=== PATIENT | male | born 1965 | race Caucasian/White ===

== ENCOUNTER 2018-08-10 14:51 | Day surgery (SDC) | payer OTHER ==
[~2018-08-10 14:51] MED LIST: SEVOFLURANE 15 MIN
[2018-08-10] MEDS ORDERED: LIDOCAINE 100 MG SYRINGE (17:01)
[2018-08-10] MEDS ORDERED: FENTAnyl 50 MCG/ML VIAL ×2 (17:01→17:40)
[2018-08-10] MEDS ORDERED: ROCURONIUM 50 MG INJ (17:01)
[2018-08-10] MEDS ORDERED: CEFAZOLIN 1 GM INJ (17:01)
[2018-08-10] MEDS ORDERED: SUCCINYLCHOLINE CHLORIDE 100 MG/5 ML SYG IV (17:01)
[2018-08-10] MEDS ORDERED: PROPOFOL 100 ML (17:01)
[2018-08-10] MEDS ORDERED: MIDAZOLAM 1 MG/ML 2 ML INJ (17:01)
[2018-08-10] MEDS ORDERED: ONDANSETRON 4 MG INJ (17:18)
[2018-08-10] MEDS ORDERED: DEXAMETHASONE 4 MG/ML 5 ML INJ (17:18)
[2018-08-10] MEDS ORDERED: LABETALOL HCL 20MG INJ IV (17:30)
[2018-08-10] MEDS ORDERED: METOCLOPRAMIDE 10 MG INJ IV (17:30)
[2018-08-10] MEDS ORDERED: ONDANSETRON 4 MG INJ IV (17:30)
[2018-08-10] MEDS ORDERED: hydrALAzine 20 MG INJ IV (17:30)
[2018-08-10] MEDS ORDERED: HYDROmorphONE 1 MG/5 ML IV SYRINGE IV ×2 (17:30)
[2018-08-10] MEDS ORDERED: MEPERIDINE 25 MG INJ IV (17:30)
[2018-08-10] MEDS ORDERED: FENTAnyl 50 MCG/ML VIAL IV (17:30)
[2018-08-10] MEDS: BUPIVACAINE 0.5% (SDV) 30 ML INJ (17:44)
[2018-08-10] MEDS ORDERED: SUGAMMADEX SODIUM 200 MG/2 ML VIAL IV (17:44)
[2018-08-10] MEDS ORDERED: LABETALOL HCL 20MG INJ (17:50)
[2018-08-10] MEDS: FENTAnyl 50 MCG/ML VIAL IV (20:08)
== END 2018-08-10 20:52 | disposition home or self-care (01) ==
LOC: SDS 14:51
DX: M72.0 Palmar fascial fibromatosis [Dupuytren] (principal)
CPT/HCPCS: 26123; 73130-RT

== ENCOUNTER 2018-12-05 05:09 | Inpatient (IN) | payer OTHER ==
[2018-12-05] MEDS ORDERED: DOCUSATE SODIUM 100 MG CAP PO (05:30)
[2018-12-05] MEDS ORDERED: NACL 0.9% 3 ML SYG IV (05:30)
[2018-12-05] MEDS ORDERED: ONDANSETRON 4 MG INJ IV (05:30)
[2018-12-05] MEDS ORDERED: BISACODYL (EC) 5 MG TAB PO (05:30)
[2018-12-05] MEDS: CHLORDIAZEPOXIDE 25 MG CAP PO ×4 (05:54→20:22)
[2018-12-05 05:56] LABS: ADD MAN DIFF? NO
[2018-12-05 05:58] LABS: WHITE BLOOD COUNT 3.8 10^3/ul (4.8-10.8)
[2018-12-05 05:58] LABS: ABNORMAL IP MESSAGE 1; BASOPHIL # 0.1 10^3/ul (0.0-0.1); BASOPHILS % 1.6 % (0.0-2.0); EOSINOPHILS # 0.1 10^3/ul (0.0-0.5); EOSINOPHILS % 2.3 % (0.0-7.0); HEMOGLOBIN 10.8 g/dl (14.0-18.0); LYMPHOCYTES # 1.3 10^3/ul (0.8-2.9); LYMPHOCYTES % 32.9 % (15.0-51.0); MEAN CORPUSCULAR VOLUME 108.3 fl (82.0-101.0); MONOCYTE # 0.3 10^3/ul (0.3-0.9); MONOCYTES % 8.9 % (0.0-11.0); NEUTROPHIL # 2.1 10^3/ul (1.6-7.5); NEUTROPHILS % 53.8 % (39.0-77.0); PLATELET COUNT 70 10^3/UL (140-415); POSITIVE DIFF @See below; RED BLOOD COUNT 2.77 10^6/ul (4.70-6.10); RED CELL DISTRIBUTION WIDTH 13.6 % (11.5-14.5)
[2018-12-05 06:17] LABS: ALANINE AMINOTRANSFERASE 68 IU/L (13-69); ALBUMIN 3.7 g/dl (3.3-4.9); ALBUMIN/GLOBULIN RATIO 1.37; ALKALINE PHOSPHATASE 90 IU/L (42-121); ANION GAP 12 (5-13); ASPARTATE AMINO TRANSFERASE 81 IU/L (15-46); BILIRUBIN,INDIRECT 1.9 mg/dl (0-1.1); BILIRUBIN,TOTAL 1.9 mg/dl (0.2-1.3); BLOOD UREA NITROGEN 11 mg/dl (7-20); CALCIUM 9.1 mg/dl (8.4-10.2); CARBON DIOXIDE 26 mmol/L (21-31); CHLORIDE 98 mmol/L (97-110); CHOLESTEROL 133 mg/dl (100-200); CREATININE 0.55 mg/dl (0.61-1.24); Estimated GFR > 60 mL/min (>60); GLUCOSE 92 mg/dl (70-220); HDL CHOLESTEROL 65 mg/dl (28-71); LDL CHOLESTEROL,CALCULATED 58 mg/dl; MAGNESIUM 1.8 mg/dl (1.7-2.5); POTASSIUM 3.8 mmol/L (3.5-5.1); SODIUM 136 mmol/L (135-144); TOTAL PROTEIN 6.4 g/dl (6.1-8.1); TRIGLYCERIDES 50 mg/dl (0-149)
[2018-12-05 06:22] LABS: INR 0.91; PROTIME 12.4 Sec (11.9-14.9)
[2018-12-05 06:23] LABS: PARTIAL THROMBOPLASTIN TIME 28.3 Sec (23.0-35.0)
[2018-12-05 06:31] LABS: ETHANOL < 10.0 mg/dl (0-0)
[2018-12-05 07:42] LABS: HEMOGLOBIN A1C 4.4 % (0-5.9)
[2018-12-05] MEDS: THIAMINE 100 MG TAB PO (08:54)
[2018-12-05] MEDS: FOLIC ACID 1 MG TAB PO (08:54)
[2018-12-05] MEDS: MULTIVITAMINS 10 ML, THIAMINE 100 MG, FOLIC ACID 1 MG in SOD CHLORIDE 0.9% 1,000 ML IVPB (08:54)
[2018-12-05] MEDS: MULTIVITAMINS THERAPEUTIC TAB PO (08:54)
[2018-12-05 09:37] LABS: HAAIG REFLEX REFLEX FILED
[2018-12-05 10:30] LABS: HEPATITIS B SURFACE ANTIGEN NEGATIVE (NEGATIVE)
[2018-12-05 10:47] LABS: HEPATITIS B SURFACE ANTIBODY NEGATIVE (NEGATIVE)
[2018-12-05 10:48] LABS: HEPATITIS B CORE ANTIBODY NEGATIVE (NEGATIVE); HEPATITIS C VIRAL ANTIBODY NEGATIVE (NEGATIVE)
[2018-12-05] MEDS: LORAZEPAM 2 MG INJ IV ×2 (18:15→23:16)
[2018-12-05] MEDS: ZOLPIDEM 5 MG TAB PO (23:57)
[2018-12-06] MEDS: LORAZEPAM 2 MG INJ IV ×4 (02:28→22:58)
[2018-12-06 05:31] LABS: AMPHETAMINE/METHAMPHETAMINE Negative (NEGATIVE); BARBITURATES Negative (NEGATIVE); BENZODIAZEPINES Positive (NEGATIVE); CANNABINOIDS Negative (NEGATIVE); COCAINE Negative (NEGATIVE); OPIATES Negative (NEGATIVE)
[2018-12-06 05:34] LABS: ADD MAN DIFF? NO
[2018-12-06 05:38] LABS: ABNORMAL IP MESSAGE 1; BASOPHIL # 0.1 10^3/ul (0.0-0.1); BASOPHILS % 2.3 % (0.0-2.0); EOSINOPHILS # 0.1 10^3/ul (0.0-0.5); EOSINOPHILS % 2.3 % (0.0-7.0); HEMATOCRIT 30.8 % (42.0-52.0); HEMOGLOBIN 10.4 g/dl (14.0-18.0); LYMPHOCYTES # 1.4 10^3/ul (0.8-2.9); LYMPHOCYTES % 39.6 % (15.0-51.0); MEAN CORPUSCULAR HEMOGLOBIN 37.8 pg (29.0-33.0); MEAN CORPUSCULAR HGB CONC 33.8 g/dl (32.0-37.0); MEAN PLATELET VOLUME 11.2 fl (7.4-10.4); MONOCYTE # 0.3 10^3/ul (0.3-0.9); MONOCYTES % 8.4 % (0.0-11.0); NEUTROPHIL # 1.6 10^3/ul (1.6-7.5); NEUTROPHILS % 46.8 % (39.0-77.0); PLATELET COUNT 68 10^3/UL (140-415); POSITIVE DIFF @See below; RED BLOOD COUNT 2.75 10^6/ul (4.70-6.10); RED CELL DISTRIBUTION WIDTH 13.9 % (11.5-14.5)
[2018-12-06 05:38] LABS: WHITE BLOOD COUNT 3.5 10^3/ul (4.8-10.8)
[2018-12-06 06:02] LABS: ALANINE AMINOTRANSFERASE 58 IU/L (13-69); ALBUMIN 3.3 g/dl (3.3-4.9); ALBUMIN/GLOBULIN RATIO 1.26; ALKALINE PHOSPHATASE 71 IU/L (42-121); ANION GAP 7 (5-13); ASPARTATE AMINO TRANSFERASE 65 IU/L (15-46); BILIRUBIN,INDIRECT 0.9 mg/dl (0-1.1); BILIRUBIN,TOTAL 0.9 mg/dl (0.2-1.3); BLOOD UREA NITROGEN 16 mg/dl (7-20); CALCIUM 9.5 mg/dl (8.4-10.2); CARBON DIOXIDE 29 mmol/L (21-31); CHLORIDE 103 mmol/L (97-110); CREATININE 0.56 mg/dl (0.61-1.24); Estimated GFR > 60 mL/min (>60); GLUCOSE 101 mg/dl (70-220); POTASSIUM 3.5 mmol/L (3.5-5.1); SODIUM 139 mmol/L (135-144); TOTAL PROTEIN 5.9 g/dl (6.1-8.1)
[2018-12-06] MEDS ORDERED: NICOTINE POLACRILEX 2 MG GUM BUCCAL (06:30)
[2018-12-06] MEDS: FOLIC ACID 1 MG TAB PO (08:46)
[2018-12-06] MEDS: MULTIVITAMINS THERAPEUTIC TAB PO (08:46)
[2018-12-06] MEDS: NICOTINE (21 MG/24 HR) PATCH TRANSDERM (08:47)
[2018-12-06] MEDS: THIAMINE 100 MG TAB PO (08:47)
[2018-12-06] MEDS: CHLORDIAZEPOXIDE 25 MG CAP PO ×3 (08:47→20:56)
[2018-12-06] MEDS: HALOPERIDOL 5 MG INJ IM (09:19)
[2018-12-06] MEDS ORDERED: PANTOPRAZOLE (EC) 40 MG TAB PO (12:55)
[2018-12-06] MEDS: PANTOPRAZOLE (EC) 40 MG TAB PO (13:14)
[2018-12-06 14:42] LABS: FOLATE 13.4 ng/ml (2.8-20.0)
[2018-12-06] MEDS: ZOLPIDEM 5 MG TAB PO (22:01)
[2018-12-07 05:17] LABS: ADD MAN DIFF? NO
[2018-12-07 05:21] LABS: ABNORMAL IP MESSAGE 1; BASOPHIL # 0.1 10^3/ul (0.0-0.1); BASOPHILS % 2.4 % (0.0-2.0); EOSINOPHILS # 0.1 10^3/ul (0.0-0.5); EOSINOPHILS % 3.3 % (0.0-7.0); HEMATOCRIT 28.7 % (42.0-52.0); HEMOGLOBIN 10.1 g/dl (14.0-18.0); LYMPHOCYTES # 1.3 10^3/ul (0.8-2.9); LYMPHOCYTES % 38.6 % (15.0-51.0); MEAN CORPUSCULAR HEMOGLOBIN 39.1 pg (29.0-33.0); MEAN CORPUSCULAR HGB CONC 35.2 g/dl (32.0-37.0); MEAN CORPUSCULAR VOLUME 111.2 fl (82.0-101.0); MEAN PLATELET VOLUME 11.1 fl (7.4-10.4); MONOCYTE # 0.2 10^3/ul (0.3-0.9); MONOCYTES % 7.1 % (0.0-11.0); NEUTROPHIL # 1.6 10^3/ul (1.6-7.5); NEUTROPHILS % 47.7 % (39.0-77.0); PLATELET COUNT 91 10^3/UL (140-415); POSITIVE DIFF @See below; RED BLOOD COUNT 2.58 10^6/ul (4.70-6.10); RED CELL DISTRIBUTION WIDTH 13.7 % (11.5-14.5)
[2018-12-07 05:21] LABS: WHITE BLOOD COUNT 3.4 10^3/ul (4.8-10.8)
[2018-12-07 05:45] LABS: ALANINE AMINOTRANSFERASE 73 IU/L (13-69); ALBUMIN 3.1 g/dl (3.3-4.9); ALKALINE PHOSPHATASE 63 IU/L (42-121); ANION GAP 6 (5-13); ASPARTATE AMINO TRANSFERASE 89 IU/L (15-46); BILIRUBIN,INDIRECT 0.4 mg/dl (0-1.1); BILIRUBIN,TOTAL 0.4 mg/dl (0.2-1.3); BLOOD UREA NITROGEN 14 mg/dl (7-20); CALCIUM 9.1 mg/dl (8.4-10.2); CARBON DIOXIDE 29 mmol/L (21-31); CHLORIDE 104 mmol/L (97-110); Estimated GFR > 60 mL/min (>60); GLUCOSE 114 mg/dl (70-220); POTASSIUM 3.6 mmol/L (3.5-5.1); SODIUM 139 mmol/L (135-144); TOTAL PROTEIN 5.9 g/dl (6.1-8.1)
[2018-12-07] MEDS: PANTOPRAZOLE (EC) 40 MG TAB PO (06:25)
[2018-12-07] MEDS ORDERED: CHLORDIAZEPOXIDE 25 MG CAP PO (09:00)
[2018-12-07] MEDS: THIAMINE 100 MG TAB PO (09:18)
[2018-12-07] MEDS: FOLIC ACID 1 MG TAB PO (09:18)
[2018-12-07] MEDS: CHLORDIAZEPOXIDE 25 MG CAP PO ×2 (09:19→13:40)
[2018-12-07] MEDS: MULTIVITAMINS THERAPEUTIC TAB PO (09:20)
[2018-12-07] MEDS: NICOTINE (21 MG/24 HR) PATCH TRANSDERM (09:21)
[2018-12-08] MEDS ORDERED: CHLORDIAZEPOXIDE 25 MG CAP PO (13:00)
== END 2018-12-07 18:45 | disposition home or self-care (01) | DRG 897 ==
LOC: MS3 05:09
DX: F10.239 Alcohol dependence with withdrawal, unspecified (principal); D61.818 Other pancytopenia; F10.229 Alcohol dependence with intoxication, unspecified; D69.59 Other secondary thrombocytopenia; F17.210 Nicotine dependence, cigarettes, uncomplicated; K70.0 Alcoholic fatty liver; D50.9 Iron deficiency anemia, unspecified
CPT/HCPCS: 76705; 80053; 80061; 80307; 82607; 82746; 83036; 83735; 84443; 85025; 85610; 85730; 86704; 86706; 86709; 86803; 87340; 97161

== ENCOUNTER 2019-01-05 19:41 | Emergency (ER) | payer OTHER | END 2019-01-05 20:23 | disposition home or self-care (01) | LOC: E/R 19:41 | DX: F10.920 Alcohol use, unspecified with intoxication, uncomplicated (principal); F17.210 Nicotine dependence, cigarettes, uncomplicated; M79.9 Soft tissue disorder, unspecified | CPT/HCPCS: 99282; Z7502 ==